=== PATIENT | female | born 1985 | race African-American/Black ===

== ENCOUNTER 2020-07-17 08:49 | Emergency (ER) | payer MEDICAID, OTHER ==
[~2020-07-17] VITALS: Ht 165.1 cm; Wt 65.0 kg
[2020-07-17] MEDS ORDERED: FAMOTIDINE 20MG TABLET PO ONE (09:15)
[2020-07-17] MEDS ORDERED: DIPHENHYDRAMINE 25MG CAPSULE PO ONE (09:15)
[2020-07-17] MEDS ORDERED: PREDNISONE 20MG TABLET PO ONE (09:15)
[2020-07-17] MEDS ORDERED: P50 MT (10:22)
[2020-07-17] MEDS ORDERED: DIPH25CA83 MT (10:22)
[2020-07-17 10:39] VITALS: BP 118/58
== END 2020-07-17 10:40 | disposition home or self-care (01) ==
LOC: ER 08:49
DX: T78.40XA Allergy, unspecified, initial encounter (principal); Z91.018 Allergy to other foods; X58.XXXA Exposure to other specified factors, initial encounter
CPT/HCPCS: 99284; J7512; Q0163

== ENCOUNTER 2023-10-03 16:22 | Emergency (ER) | payer OTHER ==
[~2023-10-03] VITALS: Ht 170.2 cm; Wt 75.0 kg
[~2023-10-03 16:22] MED LIST: DIPH25CA83 MT; P50 MT
[2023-10-03 16:29] VITALS: O2SAT 100
[2023-10-03 18:04] LABS: CLARITY URINE CLOUDY (CLEAR); COLOR URINE YELLOW (YELLOW); GLUCOSE URINE NEGATIVE (NEGATIVE); KETONES URINE NEGATIVE (NEGATIVE); LEUKOCYTE ESTERASE URINE 2+ (NEGATIVE); NITRITE URINE NEGATIVE (NEGATIVE); OCCULT BLOOD URINE NEGATIVE (NEGATIVE); PROTEIN URINE NEGATIVE (NEGATIVE); SPECIFIC GRAVITY URINE 1.024 (1.005-1.030); UROBILINOGEN URINE 0.2 E.U./dL (0.2-1.0)
[2023-10-03 19:09] VITALS: TEMP 98.1
[2023-10-03 19:11] LABS: BACTERIA URINE 2+; RBC URINE 0-2 /hpf (0-2); SQUAMOUS EPITHELIAL CELL URINE 3+ /lpf (RARE/1+)
[2023-10-03] MEDS: IBUPROFEN 600MG TABLET PO ONE (19:11)
[2023-10-03] MEDS ORDERED: IBUP-2029 MT (19:34)
[2023-10-03 19:45] VITALS: BP 118/80; PULSE 76; RESP 16
== END 2023-10-03 19:47 | disposition home or self-care (01) ==
LOC: ER 16:22
DX: M54.50 Low back pain, unspecified (principal)
CPT/HCPCS: 71046; 81003; 81025; 99284